=== PATIENT | male | born 2000 | race Two or more races ===

== ENCOUNTER 2022-06-25 00:13 | Emergency (ER) | payer OTHER ==
[~2022-06-25] VITALS: Ht 177.8 cm; Wt 110.2 kg
[2022-06-25] MEDS ORDERED: REDNESS RELIEF15 ML OP (02:06)
[2022-06-25] MEDS ORDERED: GENTAK5 ML OP (02:06)
== END 2022-06-25 02:14 ==
LOC: ER 00:13
DX: H10.33 Unspecified acute conjunctivitis, bilateral (principal)